=== PATIENT | male | born 1960 | race Caucasian/White ===

== ENCOUNTER 2025-10-03 16:14 | Inpatient (IN) | payer SELFPAY ==
[2025-10-03] VITALS (17 sets, daily range): BP systolic 108–148; BP diastolic 62–80; PULSE 73–89; RESP 14–19; TEMP 97–97.1; O2SAT 94
--- NOTE | 2025-10-03 16:50 | NUR ---
ADMISSION PATIENT ARRIVED FROM EXCEPTIONAL ER TO UNIT WITH A 10/10 PAIN TO RECTAL AND BACK AREA. PATIENT NOTED TO BE RESTLESS, MOANING, AND IRRITABLE SINCE ARRIVAL RELATED TO PAIN. CALLED DR. POWELL REGARDING TREATMENT. NEW ORDERS FOR STAT KUB, DILAUDID 1MG IVP Q2H, AND FOR PATIENT TO BE PLACED NPO, CARRIED OUT. NO INFORMATION IS BEING ABLE TO BE OBTAINED FROM PATIENT HE STATES TO BE IN TOO MUCH PAIN.
--- NOTE | 2025-10-03 17:10 | NUR ---
FOLLOW-UP NOTE DR. LELA XAVIER IS ON FLOOR. NEW ORDERS FOR STAT CMP, AND CMP, 500ML IV BOLUS, CARRIED OUT.
--- NOTE | 2025-10-03 17:11 | HP ---
[facility] HISTORY AND PHYSICAL Date of Service: Oct 03, 2025 Time of Service: 17:10 HISTORY OF PRESENT ILLNESS: This 64-year-old male with no significant past medical history who presented from the outside ER secondary to foreign body in his rectum. Patient initially presented to exceptional after he was noted to have a plastic bottle in his rectum. Patient underwent CT pelvis which noted that patient had a 9.8 x 7.2 cm cylindrical foreign body in the rectum. Patient was thereafter transferred to [facility] for evaluation by Surgical Service. Patient was accepted by surgery and surgery requested hospitalist service to be consulted for admission. When seen at bedside patient currently is in significant distress secondary to pain. He is not able to participate in conversation. He is alert oriented x3 and is moving upper and lower extremity without issues. He is requesting pain medications at this time. He denies any previous surgical history and denies any medical conditions. Denies taking any medications at home. History is very limited at this time due to patient's significant distress. I did call surgery and did inform Dr. Lentz significant distress due to pain. Surgery is aware. History is mostly obtained from chart review. Outside ER patient's white count was 14.8, hemoglobin was 15.4, platelet count was 247 K, sodium was 131, potassium was 4.4, chloride was 109, bicarb was 20, glucose was 151, creatinine was 1.7, CK was 317, T bili was 1.1, AST was 24, ALT was 22, alk-phos was [address] pelvis in the outside ER which showed 9.8 x 7.2 cm cylindrical foreign body in the rectum In the outside ER patient was given Rocephin, Flagyl REVIEW OF SYSTEMS CONSTITUTIONAL: Denies fevers, chills, or night sweats. No unintentional weight loss reported. NEUROLOGICAL: Denies headache, amaurosis fugax, motor weakness, sensory deficit, vertigo/spinning sensation, gait abnormalities, or tremors. ENT: No hearing loss, otalgia, otorrhea, rhinitis, rhinorrhea, hoarseness, or sore throat. CARDIOVASCULAR: Denies any exertional angina, dyspnea on exertion, orthopnea, paroxysmal nocturnal dyspnea, palpitations, life-threatening arrhythmias, claudication. PULMONARY: Denies any shortness of breath, cough, phlegm/sputum, hemoptysis, pleuritic chest pain. SLEEP: Denies morning headaches, daytime somnolence or napping. Denies difficulty falling asleep, staying asleep, waking from sleep. Denies knowledge of snoring. GASTROINTESTINAL: Positive for abdominal pain. Denied any melena, hematochezia, hematemesis GENITOURINARY: Denies frequency, urgency, nocturia, hematuria or incontinence (Storage/Irritative symptoms.) Low urinary stream, straining to void, urinary intermittency or hesitancy, splitting of the voiding stream, terminal dribbling. ENDOCRINOLOGIC: Denies polyuria, polydipsia, polyphagia or heat/cold intolerances. HEMATOLOGIC: Denies thrombophilia/previous clots, or coagulopathy/bleeding disorders. ONCOLOGIC: Denies personal history of malignancy. DERMATOLOGIC: Denies rashes or pruritus. PSYCHIATRIC: Denies any suicidal or homicidal ideation. Denies hallucinations. PAST MEDICAL HISTORY: Denied any previous medical conditions PAST SURGICAL HISTORY: Denied any previous surgical history PAST SOCIAL HISTORY: Unable to obtain FAMILY HISTORY: Unable to obtain Coded Allergies: No Known Drug Allergies (Verified Allergy, Unknown, 10/03/25) PHYSICAL EXAM GENERAL APPEARANCE: Does not significant distress secondary to pain NEUROLOGICAL: Cranial nerves II-XII grossly intact. Motor is 5/5 in bilateral upper and lower extremities proximal to distal. No sensory deficits. HEENT: Face is symmetric. Pupils are equal and reactive. Extraocular movements are intact. NECK: Supple. No JVD. No thyromegaly. No submental, submandibular, pre- /postauricular, occipital or supraclavicular lymphadenopathy. CHEST: Normal chest expansion. No Telemetry. LUNGS: Absence of any rales, rhonchi or any wheezing. CARDIOVASCULAR: Regular. S1 and S2 normal. No appreciable rubs, murmurs or gallops. ABDOMEN: Does not cooperate for abdominal exam : Deferred. No Desai. EXTREMITIES: Non-edematous and not cyanotic. No clubbing. Good capillary refill. SKIN: No skin breakdown. LABS: Outside labs reviewed Current Medications Medications (Trade) Dose Ordered Sig/Efra Route PRN Reason Start Time Stop Time Status Last Admin Dose Admin Ceftriaxone Sodium (Rocephin 2gm Inj) 2 gm Q24H IVPB 10/04/25 07:00 10/14/25 06:59 UNV Famotidine (Pepcid 20mg Vial) 20 mg BID IV 10/03/25 21:00 11/02/25 20:59 UNV Hydromorphone HCl (DiLAUDid 1MG INJ) 1 mg Q2HPRN PRN IVP SEVERE PAIN (7-10) 10/03/25 17:30 10/08/25 17:29 Metronidazole/ Sodium Chloride 100 ml @ 100 mls/hr Q8H6 IVPB 10/03/25 22:00 10/13/25 21:59 UNV Sodium Chloride 1,000 ml @ 100 mls/hr Q10H IV 10/03/25 17:30 11/02/25 17:29 UNV DIAGNOSTICS / RADIOLOGY: [ ] ASSESSMENT: Foreign body in rectum POA Leukocytosis POA Dehydration PLAN: - patient to be admitted to medical-surgical unit -reference to foreign body in rectum. I did personally call and discussed this case with surgery. Plan for OR today. Patient to be given NS and we will be started on Rocephin and Flagyl. We will obtain CBC, CMP, PTT. Patient to be given a dose of Dilaudid and we will be on Dilaudid for pain 7/10. -obtain home medications which will be reconciled once available -we will obtain further history once patient's pain has improved likely after OR. Advanced Care Planning Which of the following were discussed: Hospice care: Yes __ No _x_ Therapeutic options: Yes __ No __ Advance directives: Yes __ No __ Other discussions: Discussed with who?: patient (Patient, family or surrogates) Voluntary nature of this service was explained to the patient? Yes _x_ No __ Amount of time spent: 25 minutes LELA Daniel MD, MD Oct 03, 2025 17:11
[2025-10-03] MEDS: 0.9% NACL 500ML IV.SOLN IV STA (17:15)
--- NOTE | 2025-10-03 17:20 | NUR ---
FOLLOW-UP NOTE NEW ORDERS PER DR. POWELL TO OBTAIN CONSENT FOR EXAMINATION UNDER ANESTHESIA AND ANY INDICATED PROCEDURES. PATIENT IS TO BE SENT TO OR PER DR. POWELL.
--- NOTE | 2025-10-03 17:30 | NUR ---
LEFT TO OR PATIENT LEFT UNIT TO OR PROCEDURE. AT THIS GIVEN MOMENT, NO PATIENT HISTORY OR INFORMATION IS ABLE TO BE OBTAINED PATIENT CONTINUES TO STATE TO BE IN A LOT OF PAIN.
[2025-10-03 17:33] LABS: IMMATURE GRANULOCYTE ABSOLUTE 0.08 K/uL (0-1); NUCLEATED RED BLOOD CELLS 0.0 % (0.0-0.19); PLATELET COUNT (AUTO) 238 K/uL (130-400); RED BLOOD CELL COUNT(AUTO) 4.92 MIL/uL (4.50-6.20); RED CELL DISTRIBUTION WIDTH 11.9 % (11.0-15.5); WHITE BLOOD COUNT (AUTO) 16.7 K/uL (4.8-10.8)
[2025-10-03 17:42] LABS: INR 1.03 (0.85-1.15)
[2025-10-03] MEDS ORDERED: MIDAZOLAM HCL 1 MG/ML 2ML VIAL ONE (18:05)
[2025-10-03] MEDS: SUGAMMADEX SODIUM 200 MG/2 ML VIAL IV ONE (18:07)
[2025-10-03] MEDS ORDERED: SUCCINYLCHOLINE CHLORIDE 20 MG/ML 10 ML VIAL ONE (18:09)
[2025-10-03] MEDS ORDERED: LIDOCAINE PF 100MG/5ML (2%) SYRINGE 5ML ONE (18:09)
[2025-10-03 18:14] LABS: CREATININE 0.9 mg/dL (0.5-1.3); GLOMERULAR FILTR. RATE CALC 96.0 mL/min (>90); GLUCOSE,RANDOM 117.0 mg/dL (70-105); SODIUM SERUM 137.0 mmol/L (136-145); UREA NITROGEN, BLOOD 20.0 mg/dL (7-18)
[2025-10-03 18:18] LABS: ASPARTATE AMINOTRANSFERASE 20.0 U/L (10-37); TOTAL PROTEIN, SERUM 7.8 g/dL (6.0-8.3)
--- NOTE | 2025-10-03 18:28 | HMCIMG ---
EXAM: CR Abdomen, 2 View. CLINICAL HISTORY: FOREIGN OBJECT IN RECTUM COMPARISON: None provided. FINDINGS: There is a 10 x 7 cm foreign object within the distal rectosigmoid colon. Visualized proximal bowel loops remain normal in caliber. There is abundant colonic fecal matter noted. No pneumoperitoneum or radiographic evidence of pneumatosis intestinalis. IMPRESSION: 1. 10 x 7 cm foreign object in distal rectosigmoid colon. 2. No pneumoperitoneum or pneumatosis intestinalis. /Garita
[2025-10-03] MEDS: LIDOCAINE HCL/EPINEPHRINE 30 ML VIAL IJ ONE (19:03)
[2025-10-03] MEDS ORDERED: LIDOCAINE HCL/EPINEPHRINE 30 ML VIAL IJ ONE (19:16)
[2025-10-03] MEDS ORDERED: [UNRECOGNIZED DRUG - OTHER] TP ONE (19:33)
[2025-10-03] MEDS ORDERED: LIDOCAINE HCL TP ONE (19:33)
[2025-10-03] MEDS ORDERED: APPL TP ONE (19:33)
--- NOTE | 2025-10-03 19:51 | CONS ---
GENERAL SURGERY CONSULTATION NOTE DATE OF CONSULTATION: Oct 03, 2025 TIME OF CONSULTATION: 19:51 CONSULTING SERVICE: Sherry Rock MD REQUESTING PHYSICAIN: [ ] REASON FOR CONSULTATION: [ ] HISTORY OF PRESENT ILLNESS: [ ] PAST MEDICAL HISTORY: [ ] PAST SURGICAL HISTORY: [ ] FAMILY HISTORY: [ ] SOCIAL HISTORY: [ ] Current Medications Medications (Trade) Dose Ordered Sig/Efra Route Start Time Stop Time Status Last Admin Dose Admin Ceftriaxone Sodium (Rocephin 2gm Inj) 2 gm Q24H IVPB 10/04/25 07:00 10/14/25 06:59 Famotidine (Pepcid 20mg Vial) 20 mg DAILY IV 10/03/25 21:00 11/02/25 20:59 Metronidazole/ Sodium Chloride 100 ml @ 100 mls/hr Q8H6 IVPB 10/03/25 22:00 10/13/25 21:59 Sodium Chloride 1,000 ml @ 100 mls/hr Q10H IV 10/03/25 17:30 11/02/25 17:29 Sodium Chloride (NS 500ml Iv.soln) 500 ml BOLUS STAT IV 10/03/25 17:15 10/03/25 17:39 DC Allergies: Coded Allergies: No Known Drug Allergies (Verified Allergy, Unknown, 10/03/25) REVIEW OF SYSTEMS: MICA BUILDER: [Denies headaches or blurring of vision.] RESP: [No cough, chest pain or SOB.] CVS: [No palpitaions.] GI: [abdominal pain with nausea and vomiting, no diarrhea or constipation.] MICHELLE: [No dysuria or hematuria.] Musculoskeletal: [No swelling or joint pain.] BACK: [No pain or swelling.] All other systems are reviewed and essentially negative pertinent positives in HPI. PHYSICAL EXAMINATION: GENERAL: [Patient is lying comfortably in bed, not in any obvious distress.] HEAD: [Normal with no signs of head trauma.] EYES: [Not pale not jaundiced afebrile to touch.] ENT: [ Normal.] NECK: [Supple,no tenderness,no lymphadenopathy,no masses,no thyromegaly ,no bruits, no JVD.] LUNGS: [Clear breath sounds bilaterally. No wheezes, rales, or rhonchi.] HEART: [Regular rate and rhythm. Normal S1 and S2, without murmurs, rub or gallop.] VASC: [No edema. Peripheral pulses normal and equal in all extremities.] ABD: [Bowel sounds present,soft, RUQ tender, no masses, no organomegaly.] : [Normal, no suprapubic tenderness.] LYMPH: [No lymphadenopathy noted.] EXT: [ Warm soft, non tender.] SKIN: [ No rashes or lesions.] NEURO: [ Awake Alert and oriented x3.] LABORATORY: [ ] Hematology Labs: Test 10/03/25 17:23 Range/Units White Blood Count 16.7 H 4.8-10.8 K/uL Red Blood Count 4.92 4.50-6.20 MIL/uL Hemoglobin 15.3 14.0-18.0 g/dL Hematocrit 44.7 42-54 % Mean Corpuscular Volume 90.9 79-99 fL Mean Corpuscular Hemoglobin 31.1 27.0-33.0 pg Mean Corpuscular Hemoglobin Concent 34.2 32.0-36.0 g/dL Red Cell Distribution Width 11.9 11.0-15.5 % Platelet Count 238 130-400 K/uL Mean Platelet Volume 10.0 7.5-10.5 fL Immature Granulocyte % (Auto) 0.5 0-1 % Neutrophils (%) (Auto) 85.5 H 40.0-77.0 % Lymphocytes (%) (Auto) 6.7 L 21.0-51.0 % Monocytes (%) (Auto) 7.1 3.0-13.0 % Eosinophils (%) (Auto) 0.1 0.0-8.0 % Basophils (%) (Auto) 0.1 0.0-5.0 % Neutrophils # (Auto) 14.3 H 1.8-7.7 K/uL Lymphocytes # (Auto) 1.1 1.0-4.8 K/uL Monocytes # (Auto) 1.2 H 0.1-1.0 K/uL Eosinophils # (Auto) 0.02 0.00-0.70 K/uL Basophils # (Auto) 0.01 0.00-0.20 K/uL Absolute Immature Granulocyte (auto 0.08 0-1 K/uL Nucleated Red Blood Cells 0.0 0.0-0.19 % White Cell Morphology Comment See comments Chemistry Labs: Test 10/03/25 17:23 Range/Units Sodium Level 137 136-145 mmol/L Potassium Level 3.6 3.5-5.1 mmol/L Chloride Level 101 101-111 mmol/L Carbon Dioxide Level 21 21-32 mmol/L Blood Urea Nitrogen 20 H 7-18 mg/dL Creatinine 0.9 0.5-1.3 mg/dL Glomerular Filtration Rate Calc 96 >90 mL/min Random Glucose 117 H 70-105 mg/dL Total Calcium 8.8 8.5-10.1 mg/dL Total Bilirubin 0.8 0.2-1.0 mg/dL Aspartate Amino Transf (AST/SGOT) 20 10-37 U/L Alanine Aminotransferase (ALT/SGPT) 15 12-78 U/L Alkaline Phosphatase 71 50-136 U/L Total Protein 7.8 6.0-8.3 g/dL Albumin 3.5 3.5-5.0 g/dL Coagulation Labs: Test 10/03/25 17:23 Range/Units Prothrombin Time 10.9 9.6-11.6 SEC Prothromb Time International Ratio 1.03 0.85-1.15 Activated Partial Thromboplast Time 24.6 L 26.3-35.5 SEC DIAGNOSTICS / RADIOLOGY: [Copy/Paste Echos/Imaging Report here] ASSESSMENT: [] Foreign body in the rectum PLAN: [] NPO/IVF/IV ANTIOBIOTICS Schedule for OR We talked about various treatment options including but not limited to surgery. We talked about risks and benefits of surgery, patient verbalized understanding has agreed to proceed [ ]. We will schedule [ ]. SHERRY ROCK MD Oct 03, 2025 19:51
--- NOTE | 2025-10-03 20:40 | NUR ---
Post op Patient arrived from surgery, alert x3. Drowsy. Follows commands. Denies pain or shortness of breath. Minimal bleeding from rectum. Reinforced and placed a pad. Vitals stable. Oxygen saturation at 89%, Applied 2 liters nasal cannula. Fall precautions in place. Call light within reach. bed alarm on.
[2025-10-03] MEDS: FAMOTIDINE 20MG VIAL IV SCH (21:11)
[2025-10-03] MEDS: 0.9%NACL 1000ML 1,000 ML IV SCH (21:12)
[2025-10-04] VITALS (10 sets, daily range): BP systolic 88–137; BP diastolic 58–88; PULSE 70–90; RESP 16–19; TEMP 98.1–100.1; O2SAT 97
--- NOTE | 2025-10-04 03:49 | NUR ---
BLADDER SCAN Patient due to void. States he does not feel urge or pain/pressure to urinate. Bladder scan with 469 ml urine. Notified Hebert Song NP.
[2025-10-04 03:58] LABS: IMMATURE GRANULOCYTE ABSOLUTE 0.08 K/uL (0-1); NUCLEATED RED BLOOD CELLS 0.0 % (0.0-0.19); PLATELET COUNT (AUTO) 221 K/uL (130-400); RED BLOOD CELL COUNT(AUTO) 4.56 MIL/uL (4.50-6.20); RED CELL DISTRIBUTION WIDTH 12.2 % (11.0-15.5); WHITE BLOOD COUNT (AUTO) 16.8 K/uL (4.8-10.8)
[2025-10-04 04:13] LABS: CREATININE 0.9 mg/dL (0.5-1.3); GLOMERULAR FILTR. RATE CALC 96.0 mL/min (>90); GLUCOSE,RANDOM 103.0 mg/dL (70-105); SODIUM SERUM 139.0 mmol/L (136-145); UREA NITROGEN, BLOOD 16.0 mg/dL (7-18)
--- NOTE | 2025-10-04 11:34 | NUR ---
DCP:HOME Pt currently lives alone in his home. Pt denies any DME, home health, or provider services. Pt states that he is able to complete ADLs independently. PCP is [facility] and uses [employer] [facility] for any RX needs. At DC pt will want to go home and family can assist with transportation.
--- NOTE | 2025-10-04 12:18 | PN ---
[facility] PROGRESS NOTE Date of Service: Oct 04, 2025 Time of Service: 12:14 Dr. Estrada SUBJECTIVE: [ 10/03/25 This 64-year-old male with no significant past medical history who presented from the outside ER secondary to foreign body in his rectum. Patient initially presented to exceptional after he was noted to have a plastic bottle in his rectum. Patient underwent CT pelvis which noted that patient had a 9.8 x 7.2 cm cylindrical foreign body in the rectum. Patient was thereafter transferred to [facility] hospital for evaluation by Surgical Service. Patient was accepted by surgery and surgery requested hospitalist service to be consulted for admission. When seen at bedside patient currently is in significant distress secondary to pain. He is not able to participate in conversation. He is alert oriented x3 and is moving upper and lower extremity without issues. He is requesting pain medications at this time. He denies any previous surgical history and denies any medical conditions. Denies taking any medications at home. History is very limited at this time due to patient's significant distress. I did call surgery and did inform Dr. Lentz significant distress due to pain. Surgery is aware. History is mostly obtained from chart review. 10/04/25 patient was seen by nurse practitioner and physician during rounding in room 407. Patient was evaluated by the surgeon and took patient to OR to remove foreign body object from the rectum. WBC today is 16.8. Patient remains on Rocephin and Flagyl. Continue normal saline at 100 mL/hour. We will continue to monitor patient in the meantime. A.m. labs. Anticipated discharge within 24 hours once cleared by the surgeon.] REVIEW OF SYSTEMS CONSTITUTIONAL: Denies fevers, chills, or night sweats. No unintentional weight loss reported. NEUROLOGICAL: Denies headache, amaurosis fugax, motor weakness, sensory deficit, vertigo/spinning sensation, gait abnormalities, or tremors. ENT: No hearing loss, otalgia, otorrhea, rhinitis, rhinorrhea, hoarseness, or sore throat. CARDIOVASCULAR: Denies any exertional angina, dyspnea on exertion, orthopnea, paroxysmal nocturnal dyspnea, palpitations, life-threatening arrhythmias, claudication. PULMONARY: Denies any shortness of breath, cough, phlegm/sputum, hemoptysis, pleuritic chest pain. SLEEP: Denies morning headaches, daytime somnolence or napping. Denies di fficulty falling asleep, staying asleep, waking from sleep. Denies knowledge of snoring. GASTROINTESTINAL: Denies any abdominal pain. Denied any melena, hematochezia, hematemesis GENITOURINARY: Denies frequency, urgency, nocturia, hematuria or incontinence (Storage/Irritative symptoms.) Low urinary stream, straining to void, urinary intermittency or hesitancy, splitting of the voiding stream, terminal dribbling. ENDOCRINOLOGIC: Denies polyuria, polydipsia, polyphagia or heat/cold intolerances. HEMATOLOGIC: Denies thrombophilia/previous clots, or coagulopathy/bleeding disorders. ONCOLOGIC: Denies personal history of malignancy. DERMATOLOGIC: Denies rashes or pruritus. PSYCHIATRIC: Denies any suicidal or homicidal ideation. Denies hallucinations. PHYSICAL EXAM GENERAL APPEARANCE: Alert and oriented x4 on room air NEUROLOGICAL: Cranial nerves II-XII grossly intact. Motor is 5/5 in bilateral upper and lower extremities proximal to distal. No sensory deficits. HEENT: Face is symmetric. Pupils are equal and reactive. Extraocular movements are intact. NECK: Supple. No JVD. No thyromegaly. No submental, submandibular, pre- /postauricular, occipital or supraclavicular lymphadenopathy. CHEST: Normal chest expansion. No Telemetry. LUNGS: Absence of any rales, rhonchi or any wheezing. CARDIOVASCULAR: Regular. S1 and S2 normal. No appreciable rubs, murmurs or gallops. ABDOMEN: Does not cooperate for abdominal exam : Deferred. No Desai. EXTREMITIES: Non-edematous and not cyanotic. No clubbing. Good capillary refill. SKIN: No skin breakdown. Vital Signs (last 8hr) Date Time Temp Pulse Resp B/P (MAP) Pulse Ox O2 Delivery O2 Flow Rate FiO2 10/04/25 07:49 98.1 85 18 123/72 95 Nasal Cannula 2.0 LABS: Laboratory: Test 10/04/25 03:37 10/03/25 17:23 Range/Units White Blood Count 16.8 H 4.8-10.8 K/uL Red Blood Count 4.56 4.50-6.20 MIL/uL Hemoglobin 14.2 14.0-18.0 g/dL Hematocrit 42.7 42-54 % Mean Corpuscular Volume 93.6 79-99 fL Mean Corpuscular Hemoglobin 31.1 27.0-33.0 pg Mean Corpuscular Hemoglobin Concent 33.3 32.0-36.0 g/dL Red Cell Distribution Width 12.2 11.0-15.5 % Platelet Count 221 130-400 K/uL Mean Platelet Volume 9.9 7.5-10.5 fL Immature Granulocyte % (Auto) 0.5 0-1 % Neutrophils (%) (Auto) 85.8 H 40.0-77.0 % Lymphocytes (%) (Auto) 6.3 L 21.0-51.0 % Monocytes (%) (Auto) 7.3 3.0-13.0 % Eosinophils (%) (Auto) 0.0 0.0-8.0 % Basophils (%) (Auto) 0.1 0.0-5.0 % Neutrophils # (Auto) 14.4 H 1.8-7.7 K/uL Lymphocytes # (Auto) 1.1 1.0-4.8 K/uL Monocytes # (Auto) 1.2 H 0.1-1.0 K/uL Eosinophils # (Auto) 0.00 0.00-0.70 K/uL Basophils # (Auto) 0.01 0.00-0.20 K/uL Absolute Immature Granulocyte (auto 0.08 0-1 K/uL Nucleated Red Blood Cells 0.0 0.0-0.19 % Sodium Level 139 136-145 mmol/L Potassium Level 4.0 3.5-5.1 mmol/L Chloride Level 105 101-111 mmol/L Carbon Dioxide Level 23 21-32 mmol/L Blood Urea Nitrogen 16 7-18 mg/dL Creatinine 0.9 0.5-1.3 mg/dL Glomerular Filtration Rate Calc 96 >90 mL/min Random Glucose 103 70-105 mg/dL Total Calcium 7.9 L 8.5-10.1 mg/dL White Cell Morphology Comment See comments Prothrombin Time 10.9 9.6-11.6 SEC Prothromb Time International Ratio 1.03 0.85-1.15 Activated Partial Thromboplast Time 24.6 L 26.3-35.5 SEC Total Bilirubin 0.8 0.2-1.0 mg/dL Aspartate Amino Transf (AST/SGOT) 20 10-37 U/L Alanine Aminotransferase (ALT/SGPT) 15 12-78 U/L Alkaline Phosphatase 71 50-136 U/L Total Protein 7.8 6.0-8.3 g/dL Albumin 3.5 3.5-5.0 g/dL Current Medications Medications (Trade) Dose Ordered Sig/Efra Route PRN Reason Start Time Stop Time Status Last Admin Dose Admin Ceftriaxone Sodium (Rocephin 2gm Inj) 2 gm Q24H IVPB 10/04/25 07:00 10/14/25 06:59 10/04/25 10:09 2 GM Famotidine (Pepcid 20mg Vial) 20 mg DAILY IV 10/03/25 21:00 11/02/25 20:59 10/04/25 10:09 20 MG Hydromorphone HCl (DiLAUDid 0.5MG INJ) 0.75 mg Q6H PRN IVP SEVERE PAIN (7-10) 10/03/25 21:00 10/08/25 20:59 Hydromorphone HCl (DiLAUDid 1MG INJ) 1 mg Q2HPRN PRN IVP SEVERE PAIN (7-10) 10/03/25 17:30 10/04/25 04:04 DC 10/03/25 17:11 1 MG Hydromorphone HCl (DiLAUDid 1MG INJ) 1 mg Q3H PRN IVP SEVERE PAIN (7-10) 10/04/25 04:00 10/08/25 17:29 Ketorolac Tromethamine (toRADol) 30 mg Q6H PRN IM SEVERE PAIN (7-10) 10/04/25 04:00 10/09/25 03:59 Metronidazole/ Sodium Chloride 100 ml @ 100 mls/hr Q8H6 IVPB 10/03/25 22:00 10/13/25 21:59 10/04/25 05:14 100 MLS/HR Ondansetron HCl (zoFRAN 4MG INJ) 4 mg Q6H PRN IVP NAUSEA/VOMITING 10/04/25 04:00 11/03/25 03:59 Oxycodone/ Acetaminophen (perCOCET) 1 tab Q4H PRN PO MODERATE PAIN (4-6) 10/04/25 04:00 10/11/25 03:59 Sodium Chloride 1,000 ml @ 100 mls/hr Q10H IV 10/03/25 17:30 11/02/25 17:29 10/03/25 21:12 100 MLS/HR Sodium Chloride (NS 500ml Iv.soln) 500 ml BOLUS STAT IV 10/03/25 17:15 10/03/25 17:39 DC 10/03/25 17:15 500 ML DIAGNOSTICS / RADIOLOGY: [ ] ASSESSMENT: Foreign body in rectum POA Leukocytosis POA Dehydration PLAN: - Patient was evaluated by the surgeon and took patient to OR to remove foreign body object from the rectum. WBC today is 16.8. Patient remains on Rocephin and Flagyl. Continue normal saline at 100 mL/hour. We will continue to monitor patient in the meantime. A.m. labs. Anticipated discharge within 24 hours once cleared by the surgeon. -reference to foreign body in rectum. I did personally call and discussed this case with surgery. Plan for OR today. Patient to be given NS and we will be started on Rocephin and Flagyl. We will obtain CBC, CMP, PTT. Patient to be given a dose of Dilaudid and we will be on Dilaudid for pain 05/05. -obtain home medications which will be reconciled once available ATTESTATION BY PHYSICIAN I have seen and examined the patient. I reviewed the documentation, medical decision making, and treatment plan as noted by the mid-level provider above. I agree with the findings and plan of care. WANG ESTRADA MD, [facility] Oct 04, 2025 12:18
--- NOTE | 2025-10-04 18:55 | PN ---
GENERAL SURGERY PROGRESS NOTE DATE OF SERVICE: Oct 04, 2025 TIME OF SERVICE: 18:55 PROBLEM LISTS: [ ] INTERVAL HISTORY: [ ] PHYSICAL EXAMINATION: GENERAL: [Patient is lying comfortably in bed, not in any obvious distress.] HEAD: [Normal with no signs of head trauma.] EYES: [Not pale not jaundiced afebrile to touch.] ENT: [ Normal.] NECK: [Supple,no tenderness,no lymphadenopathy,no masses,no thyromegaly ,no bruits, no JVD.] LUNGS: [Clear breath sounds bilaterally. No wheezes, rales, or rhonchi.] HEART: [Regular rate and rhythm. Normal S1 and S2, without murmurs, rub or gallop.] VASC: [No edema. Peripheral pulses normal and equal in all extremities.] ABD: [Bowel sounds present,soft, RUQ tender, no masses, no organomegaly.] : [Normal, no suprapubic tenderness.] LYMPH: [No lymphadenopathy noted.] EXT: [ Warm soft, non tender.] SKIN: [ No rashes or lesions.] NEURO: [ Awake Alert and oriented x3.] LABORATORY: [ ] Hematology Labs: Test 10/04/25 03:37 10/03/25 17:23 Range/Units White Blood Count 16.8 H 4.8-10.8 K/uL Red Blood Count 4.56 4.50-6.20 MIL/uL Hemoglobin 14.2 14.0-18.0 g/dL Hematocrit 42.7 42-54 % Mean Corpuscular Volume 93.6 79-99 fL Mean Corpuscular Hemoglobin 31.1 27.0-33.0 pg Mean Corpuscular Hemoglobin Concent 33.3 32.0-36.0 g/dL Red Cell Distribution Width 12.2 11.0-15.5 % Platelet Count 221 130-400 K/uL Mean Platelet Volume 9.9 7.5-10.5 fL Immature Granulocyte % (Auto) 0.5 0-1 % Neutrophils (%) (Auto) 85.8 H 40.0-77.0 % Lymphocytes (%) (Auto) 6.3 L 21.0-51.0 % Monocytes (%) (Auto) 7.3 3.0-13.0 % Eosinophils (%) (Auto) 0.0 0.0-8.0 % Basophils (%) (Auto) 0.1 0.0-5.0 % Neutrophils # (Auto) 14.4 H 1.8-7.7 K/uL Lymphocytes # (Auto) 1.1 1.0-4.8 K/uL Monocytes # (Auto) 1.2 H 0.1-1.0 K/uL Eosinophils # (Auto) 0.00 0.00-0.70 K/uL Basophils # (Auto) 0.01 0.00-0.20 K/uL Absolute Immature Granulocyte (auto 0.08 0-1 K/uL Nucleated Red Blood Cells 0.0 0.0-0.19 % White Cell Morphology Comment See comments Chemistry Labs: Test 10/04/25 03:37 10/03/25 17:23 Range/Units Sodium Level 139 136-145 mmol/L Potassium Level 4.0 3.5-5.1 mmol/L Chloride Level 105 101-111 mmol/L Carbon Dioxide Level 23 21-32 mmol/L Blood Urea Nitrogen 16 7-18 mg/dL Creatinine 0.9 0.5-1.3 mg/dL Glomerular Filtration Rate Calc 96 >90 mL/min Random Glucose 103 70-105 mg/dL Total Calcium 7.9 L 8.5-10.1 mg/dL Total Bilirubin 0.8 0.2-1.0 mg/dL Aspartate Amino Transf (AST/SGOT) 20 10-37 U/L Alanine Aminotransferase (ALT/SGPT) 15 12-78 U/L Alkaline Phosphatase 71 50-136 U/L Total Protein 7.8 6.0-8.3 g/dL Albumin 3.5 3.5-5.0 g/dL Coagulation Labs: Test 10/03/25 17:23 Range/Units Prothrombin Time 10.9 9.6-11.6 SEC Prothromb Time International Ratio 1.03 0.85-1.15 Activated Partial Thromboplast Time 24.6 L 26.3-35.5 SEC DIAGNOSTICS / RADIOLOGY: [Copy/Paste Echos/Imaging Report here] ASSESSMENT: [] Foreign body in the rectum PLAN: [] NPO/IVF/IV ANTIOBIOTICS Schedule for OR We talked about various treatment options including but not limited to surgery. We talked about risks and benefits of surgery, patient verbalized understanding has agreed to proceed [ ]. We will schedule [ ]. SHERRY DUNCAN MD Oct 04, 2025 18:55
--- NOTE | 2025-10-04 19:39 | NUR ---
NOTIFIED DR. POWELL OF HIGH TEMPERATURE OF 100.1 TAKEN AT 11:30. NEW ORDERS FOR ACETAMINOPHEN 650MG PO Q4H.
--- NOTE | 2025-10-04 22:00 | NUR ---
DRESSING Abdominal pad and new mesh underwear placed on patient. New peripad applied under patient. No bleeding noted to rectum. Denies pain. Denies nausea. Fall precautions in place. Call light within reach.
[2025-10-05] VITALS (7 sets, daily range): BP systolic 139–155; BP diastolic 75–88; PULSE 79–89; RESP 18–20; TEMP 98.1–98.9; O2SAT 92
--- NOTE | 2025-10-05 02:51 | OP ---
DATE OF PROCEDURE: 10/03/2025 PREOPERATIVE DIAGNOSIS: Foreign body in the rectum. POSTOPERATIVE DIAGNOSIS: Foreign body in the rectum. PROCEDURE PERFORMED: 1. Examination under anesthesia. 2. Removal of rectal foreign body. 3. Repair of an anal tear. SURGEON: Tro Rock M.D. ANESTHESIA: General. ESTIMATED BLOOD LOSS: Minimal. FINDINGS: Huge plastic cylindrical bottle. SPECIMEN REMOVED: Cylindrical bottle foreign body. COMPLICATIONS: None. DESCRIPTION OF PROCEDURE: The patient was brought into the operating room. After appropriate identification, the patient was placed on the operating table in the supine position. The patient was then endotracheally intubated and the patient was then placed in lithotomy position. Attention was then focused in the area of the perineum. The skin was prepped and draped in the usual sterile fashion. I proceeded by inspecting the anorectal region. Initially, the foreign body was not visible, but once I put the speculum, I was able to see it is a huge plastic cylindrical bottle. So I proceeded to carefully manipulate this until it was able to come out. It took a lot of effort to get it out. Once it was removed, there was multiple anorectal tears that I proceeded to repair using chromic catgut. Once this was done, I then copiously irrigated the wound. Hemostasis was noted to be adequate. I then proceeded to put sterile dressing and this concluded the procedure. The instrument and sponge count was found correct x 2. The patient was then woken up, extubated, and taken to the recovery room in stable condition. The patient tolerated the procedure well. TID: [id number] RECEIPT: [id number]
[2025-10-05 03:42] LABS: IMMATURE GRANULOCYTE ABSOLUTE 0.04 K/uL (0-1); NUCLEATED RED BLOOD CELLS 0.0 % (0.0-0.19); PLATELET COUNT (AUTO) 170 K/uL (130-400); RED BLOOD CELL COUNT(AUTO) 4.16 MIL/uL (4.50-6.20); RED CELL DISTRIBUTION WIDTH 12.4 % (11.0-15.5); WHITE BLOOD COUNT (AUTO) 10.2 K/uL (4.8-10.8)
[2025-10-05 03:59] LABS: ASPARTATE AMINOTRANSFERASE 21.0 U/L (10-37); CREATININE 0.7 mg/dL (0.5-1.3); GLOMERULAR FILTR. RATE CALC 104.0 mL/min (>90); GLUCOSE,RANDOM 90.0 mg/dL (70-105); SODIUM SERUM 139.0 mmol/L (136-145); TOTAL PROTEIN, SERUM 6.2 g/dL (6.0-8.3); UREA NITROGEN, BLOOD 12.0 mg/dL (7-18)
[2025-10-05] MEDS: PoTASSium chloRIDE 20MEQ ER 20 MEQ ERTAB PO ONE (09:30)
--- NOTE | 2025-10-05 12:58 | PN ---
[facility] PROGRESS NOTE Date of Service: Oct 05, 2025 Time of Service: 12:[address] Estrada SUBJECTIVE: [ 10/03/25 This 64-year-old male with no significant past medical history who presented from the outside ER secondary to foreign body in his rectum. Patient initially presented to exceptional after he was noted to have a plastic bottle in his rectum. Patient underwent CT pelvis which noted that patient had a 9.8 x 7.2 cm cylindrical foreign body in the rectum. [place] [facility] [place] Service. Patient was accepted by surgery and surgery requested hospitalist service to be consulted for admission. When seen at bedside patient currently is in significant distress secondary to pain. He is not able to participate in conversation. He is alert oriented x3 and is moving upper and lower extremity without issues. He is requesting pain medications at this time. He denies any previous surgical history and denies any medical conditions. Denies taking any medications at home. History is very limited at this time due to patient's significant distress. I did call surgery and did inform Dr. Lentz significant distress due to pain. Surgery is aware. History is mostly obtained from chart review. 10/04/25 patient was seen by nurse practitioner and physician during rounding in room 407. Patient was evaluated by the surgeon and took patient to OR to remove foreign body object from the rectum. WBC today is 16.8. Patient remains on Rocephin and Flagyl. Continue normal saline at 100 mL/hour. We will continue to monitor patient in the meantime. A.m. labs. Anticipated discharge within 24 hours once cleared by the surgeon. 10/05/25 patient was seen by nurse practitioner and physician during rounding. Patient is s/p removal of the rectal full range body and repair of an anal tear with . As per conversation with surgeon and BURR FILER patient to remain on full liquid diet as of now and in future patient may need diverting colostomy. At this moment we are going to monitor patient. A.m. labs] REVIEW OF SYSTEMS CONSTITUTIONAL: Denies fevers, chills, or night sweats. No unintentional weight loss reported. NEUROLOGICAL: Denies headache, amaurosis fugax, motor weakness, sensory deficit, vertigo/spinning sensation, gait abnormalities, or tremors. ENT: No hearing loss, otalgia, otorrhea, rhinitis, rhinorrhea, hoarseness, or sore throat. CARDIOVASCULAR: Denies any exertional angina, dyspnea on exertion, orthopnea, paroxysmal nocturnal dyspnea, palpitations, life-threatening arrhythmias, claudication. PULMONARY: Denies any shortness of breath, cough, phlegm/sputum, hemoptysis, pleuritic chest pain. SLEEP: Denies morning headaches, daytime somnolence or napping. Denies difficulty falling asleep, staying asleep, waking from sleep. Denies knowledge of snoring. GASTROINTESTINAL: Denies any abdominal pain. Denied any melena, hematochezia, hematemesis GENITOURINARY: Denies frequency, urgency, nocturia, hematuria or incontinence (Storage/Irritative symptoms.) Low urinary stream, straining to void, urinary intermittency or hesitancy, splitting of the voiding stream, terminal dribbling. ENDOCRINOLOGIC: Denies polyuria, polydipsia, polyphagia or heat/cold intolerances. HEMATOLOGIC: Denies thrombophilia/previous clots, or coagulopathy/bleeding disorders. ONCOLOGIC: Denies personal history of malignancy. DERMATOLOGIC: Denies rashes or pruritus. PSYCHIATRIC: Denies any suicidal or homicidal ideation. Denies hallucinations. PHYSICAL EXAM GENERAL APPEARANCE: Alert and oriented x4 on room air NEUROLOGICAL: Cranial nerves II-XII grossly intact. Motor is 5/5 in bilateral upper and lower extremities proximal to distal. No sensory deficits. HEENT: Face is symmetric. Pupils are equal and reactive. Extraocular movements are intact. NECK: Supple. No JVD. No thyromegaly. No submental, submandibular, pre- /postauricular, occipital or supraclavicular lymphadenopathy. CHEST: Normal chest expansion. No Telemetry. LUNGS: Absence of any rales, rhonchi or any wheezing. CARDIOVASCULAR: Regular. S1 and S2 normal. No appreciable rubs, murmurs or gallops. ABDOMEN: Does not cooperate for abdominal exam : Deferred. No Desai. EXTREMITIES: Non-edematous and not cyanotic. No clubbing. Good capillary refill. SKIN: No skin breakdown. Vital Signs (last 8hr) Date Time Temp Pulse Resp B/P (MAP) Pulse Ox O2 Delivery O2 Flow Rate FiO2 10/05/25 11:41 98.4 79 19 142/81 94 Room Air 21 10/05/25 07:37 98.2 79 19 139/88 92 Room Air 21 LABS: Laboratory: Test 10/05/25 03:27 10/03/25 17:23 Range/Units White Blood Count 10.2 # 4.8-10.8 K/uL Red Blood Count 4.16 L 4.50-6.20 MIL/uL Hemoglobin 13.0 L 14.0-18.0 g/dL Hematocrit 39.4 L 42-54 % Mean Corpuscular Volume 94.7 79-99 fL Mean Corpuscular Hemoglobin 31.3 27.0-33.0 pg Mean Corpuscular Hemoglobin Concent 33.0 32.0-36.0 g/dL Red Cell Distribution Width 12.4 11.0-15.5 % Platelet Count 170 130-400 K/uL Mean Platelet Volume 9.7 7.5-10.5 fL Immature Granulocyte % (Auto) 0.4 0-1 % Neutrophils (%) (Auto) 76.6 40.0-77.0 % Lymphocytes (%) (Auto) 13.0 L 21.0-51.0 % Monocytes (%) (Auto) 8.9 3.0-13.0 % Eosinophils (%) (Auto) 1.0 0.0-8.0 % Basophils (%) (Auto) 0.1 0.0-5.0 % Neutrophils # (Auto) 7.8 H 1.8-7.7 K/uL Lymphocytes # (Auto) 1.3 1.0-4.8 K/uL Monocytes # (Auto) 0.9 0.1-1.0 K/uL Eosinophils # (Auto) 0.10 0.00-0.70 K/uL Basophils # (Auto) 0.01 0.00-0.20 K/uL Absolute Immature Granulocyte (auto 0.04 0-1 K/uL Nucleated Red Blood Cells 0.0 0.0-0.19 % Sodium Level 139 136-145 mmol/L Potassium Level 3.5 3.5-5.1 mmol/L Chloride Level 105 101-111 mmol/L Carbon Dioxide Level 23 21-32 mmol/L Blood Urea Nitrogen 12 7-18 mg/dL Creatinine 0.7 0.5-1.3 mg/dL Glomerular Filtration Rate Calc 104 >90 mL/min Random Glucose 90 70-105 mg/dL Total Calcium 7.8 L 8.5-10.1 mg/dL Magnesium Level 2.00 1.80-2.40 mg/dL Total Bilirubin 0.4 0.2-1.0 mg/dL Aspartate Amino Transf (AST/SGOT) 21 10-37 U/L Alanine Aminotransferase (ALT/SGPT) 13 12-78 U/L Alkaline Phosphatase 50 50-136 U/L Total Protein 6.2 6.0-8.3 g/dL Albumin 2.5 L 3.5-5.0 g/dL White Cell Morphology Comment See comments Prothrombin Time 10.9 9.6-11.6 SEC Prothromb Time International Ratio 1.03 0.85-1.15 Activated Partial Thromboplast Time 24.6 L 26.3-35.5 SEC Current Medications Medications (Trade) Dose Ordered Sig/Efra Route PRN Reason Start Time Stop Time Status Last Admin Dose Admin Acetaminophen (TYLenol 325MG TAB) 650 mg Q4H PRN PO TEMPERATURE GREATER THAN 101.5 10/04/25 21:30 11/03/25 21:29 Ceftriaxone Sodium (Rocephin 2gm Inj) 2 gm Q24H IVPB 10/04/25 07:00 10/14/25 06:59 10/05/25 09:29 2 GM Famotidine (Pepcid 20mg Vial) 20 mg DAILY IV 10/03/25 21:00 11/02/25 20:59 10/05/25 09:29 20 MG Hydromorphone HCl (DiLAUDid 0.5MG INJ) 0.75 mg Q6H PRN IVP SEVERE PAIN (7-10) 10/03/25 21:00 10/04/25 16:18 DC Hydromorphone HCl (DiLAUDid 1MG INJ) 1 mg Q2HPRN PRN IVP SEVERE PAIN (7-10) 10/03/25 17:30 10/04/25 04:04 DC 10/03/25 17:11 1 MG Hydromorphone HCl (DiLAUDid 1MG INJ) 1 mg Q3H PRN IVP SEVERE PAIN (7-10) 10/04/25 04:00 10/08/25 17:29 Ketorolac Tromethamine (toRADol) 30 mg Q6H PRN IM SEVERE PAIN (7-10) 10/04/25 04:00 10/04/25 16:18 DC Metronidazole/ Sodium Chloride 100 ml @ 100 mls/hr Q8H6 IVPB 10/03/25 22:00 10/13/25 21:59 10/05/25 06:07 100 MLS/HR Ondansetron HCl (zoFRAN 4MG INJ) 4 mg Q6H PRN IVP NAUSEA/VOMITING 10/04/25 04:00 11/03/25 03:59 Oxycodone/ Acetaminophen (perCOCET) 1 tab Q4H PRN PO MODERATE PAIN (4-6) 10/04/25 04:00 10/11/25 03:59 Sodium Chloride 1,000 ml @ 100 mls/hr Q10H IV 10/03/25 17:30 11/02/25 17:29 10/04/25 23:21 100 MLS/HR Sodium Chloride (NS 500ml Iv.soln) 500 ml BOLUS STAT IV 10/03/25 17:15 10/03/25 17:39 DC 10/03/25 17:15 500 ML DIAGNOSTICS / RADIOLOGY: [ ] ASSESSMENT: Foreign body in rectum POA s/p removal of the rectal full range body and repair of an anal tear with . Leukocytosis POA Dehydration PLAN: Patient is s/p removal of the rectal full range body and repair of an anal tear with . As per conversation with surgeon and BURR FILER patient to remain on full liquid diet as of now and in future patient may need diverting colostomy. At this moment we are going to monitor patient. A.m. labs] Patient remains on Rocephin and Flagyl. Continue normal saline at 100 mL/hour. -reference to foreign body in rectum. I did personally call and discussed this case with surgery. Plan for OR today. Patient to be given NS and we will be started on Rocephin and Flagyl. We will obtain CBC, CMP, PTT. Patient to be given a dose of Dilaudid and we will be on Dilaudid for pain 05/05. -obtain home medications which will be reconciled once available ATTESTATION BY PHYSICIAN I have seen and examined the patient. I reviewed the documentation, medical decision making, and treatment plan as noted by the mid-level provider above. I agree with the findings and plan of care. WANG ESTRADA MD, KATARZYNA B [facility] Oct 05, 2025 12:58
[2025-10-06 04:24] VITALS: BP 162/91; PULSE 86; RESP 19; TEMP 98.5
[2025-10-06 04:35] LABS: IMMATURE GRANULOCYTE ABSOLUTE 0.04 K/uL (0-1); NUCLEATED RED BLOOD CELLS 0.0 % (0.0-0.19); PLATELET COUNT (AUTO) 209 K/uL (130-400); RED BLOOD CELL COUNT(AUTO) 4.55 MIL/uL (4.50-6.20); RED CELL DISTRIBUTION WIDTH 11.9 % (11.0-15.5); WHITE BLOOD COUNT (AUTO) 9.5 K/uL (4.8-10.8)
[2025-10-06 05:16] LABS: ASPARTATE AMINOTRANSFERASE 20.0 U/L (10-37); CREATININE 0.8 mg/dL (0.5-1.3); GLOMERULAR FILTR. RATE CALC 99.0 mL/min (>90); GLUCOSE,RANDOM 96.0 mg/dL (70-105); SODIUM SERUM 138.0 mmol/L (136-145); TOTAL PROTEIN, SERUM 6.6 g/dL (6.0-8.3); UREA NITROGEN, BLOOD 7.0 mg/dL (7-18)
--- NOTE | 2025-10-06 06:00 | NUR ---
Patient stated that he is leaving in the morning. And that he is not bleeding anymore so he is gonna home. Educated the patient that it is not safe to go home because he is still needing antibiotics and that if he goes home, the incision could get infected and he could get sepsis. Patient is still insisting to leave at 8 once his mom gets here. He also refused IV antibiotics and asked to removed IV access and i told him that i can not removed until right before he gets discharge. He then proceed to remove the IV access. Paged Hospitalist to inform them about the situation pending call back.
--- NOTE | 2025-10-06 06:36 | NUR ---
Informed CLOUD CONSULTANT Aleksandraiera media liaison officer regarding patient leaving AMA. Dr. Lentz is also made aware. He said he will talk to the patient today. I told patient that Dr. Lentz is gonna speak with him and that if he can wait till he gets here. He said no once his mom is here he said he will sign AMA from and leave.
--- NOTE | 2025-10-06 06:50 | NUR ---
Educated patient to only eat full liquid diet like soups. Patient understands.
--- NOTE | 2025-10-06 07:44 | NUR ---
PT sitting in chair next to bed A&Ox4 able to needs known mother @ bedside. Educated PT on importance of following doctors orders and waiting until DR arrived. PT acknowledged understanding and stated "Yall aint doing anything else for me and I feel better I'm going home". PT sign AMA form and self ambulated off floor. aware.
[2025-10-06] MEDS: PoTASSium chloRIDE 20MEQ ER 20 MEQ ERTAB PO ONE (07:50)
--- NOTE | 2025-10-06 08:47 | PN ---
GENERAL SURGERY PROGRESS NOTE DATE OF SERVICE: Oct 06, 2025 TIME OF SERVICE: 08:47 PROBLEM LISTS: [ ] INTERVAL HISTORY: [ ] PHYSICAL EXAMINATION: GENERAL: [Patient is lying comfortably in bed, not in any obvious distress.] HEAD: [Normal with no signs of head trauma.] EYES: [Not pale not jaundiced afebrile to touch.] ENT: [ Normal.] NECK: [Supple,no tenderness,no lymphadenopathy,no masses,no thyromegaly ,no bruits, no JVD.] LUNGS: [Clear breath sounds bilaterally. No wheezes, rales, or rhonchi.] HEART: [Regular rate and rhythm. Normal S1 and S2, without murmurs, rub or gallop.] VASC: [No edema. Peripheral pulses normal and equal in all extremities.] ABD: [Bowel sounds present,soft, RUQ tender, no masses, no organomegaly.] : [Normal, no suprapubic tenderness.] LYMPH: [No lymphadenopathy noted.] EXT: [ Warm soft, non tender.] SKIN: [ No rashes or lesions.] NEURO: [ Awake Alert and oriented x3.] LABORATORY: [ ] Hematology Labs: Test 10/06/25 03:52 Range/Units White Blood Count 9.5 4.8-10.8 K/uL Red Blood Count 4.55 4.50-6.20 MIL/uL Hemoglobin 13.8 L 14.0-18.0 g/dL Hematocrit 42.2 42-54 % Mean Corpuscular Volume 92.7 79-99 fL Mean Corpuscular Hemoglobin 30.3 27.0-33.0 pg Mean Corpuscular Hemoglobin Concent 32.7 32.0-36.0 g/dL Red Cell Distribution Width 11.9 11.0-15.5 % Platelet Count 209 130-400 K/uL Mean Platelet Volume 10.4 7.5-10.5 fL Immature Granulocyte % (Auto) 0.4 0-1 % Neutrophils (%) (Auto) 72.7 40.0-77.0 % Lymphocytes (%) (Auto) 15.5 L 21.0-51.0 % Monocytes (%) (Auto) 9.4 3.0-13.0 % Eosinophils (%) (Auto) 1.8 0.0-8.0 % Basophils (%) (Auto) 0.2 0.0-5.0 % Neutrophils # (Auto) 6.9 1.8-7.7 K/uL Lymphocytes # (Auto) 1.5 1.0-4.8 K/uL Monocytes # (Auto) 0.9 0.1-1.0 K/uL Eosinophils # (Auto) 0.17 0.00-0.70 K/uL Basophils # (Auto) 0.02 0.00-0.20 K/uL Absolute Immature Granulocyte (auto 0.04 0-1 K/uL Nucleated Red Blood Cells 0.0 0.0-0.19 % Chemistry Labs: Test 10/06/25 03:52 Range/Units Sodium Level 138 136-145 mmol/L Potassium Level 3.7 3.5-5.1 mmol/L Chloride Level 105 101-111 mmol/L Carbon Dioxide Level 25 21-32 mmol/L Blood Urea Nitrogen 7 7-18 mg/dL Creatinine 0.8 0.5-1.3 mg/dL Glomerular Filtration Rate Calc 99 >90 mL/min Random Glucose 96 70-105 mg/dL Total Calcium 8.3 L 8.5-10.1 mg/dL Magnesium Level 2.00 1.80-2.40 mg/dL Total Bilirubin 0.4 0.2-1.0 mg/dL Aspartate Amino Transf (AST/SGOT) 20 10-37 U/L Alanine Aminotransferase (ALT/SGPT) 15 12-78 U/L Alkaline Phosphatase 52 50-136 U/L Total Protein 6.6 6.0-8.3 g/dL Albumin 2.7 L 3.5-5.0 g/dL DIAGNOSTICS / RADIOLOGY: [Copy/Paste Echos/Imaging Report here] ASSESSMENT: [] Foreign body in the rectum PLAN: [] NPO/IVF/IV ANTIOBIOTICS Schedule for OR We talked about various treatment options including but not limited to surgery. We talked about risks and benefits of surgery, patient verbalized understanding has agreed to proceed [ ]. We will schedule [ ]. SHERRY DUNCAN MD Oct 06, 2025 08:47
[2025-10-06] MEDS ORDERED: ENOXAPARIN SODIUM 30 MG/0.3 ML SQ SCH (09:00)
--- NOTE | 2025-10-06 10:41 | DS ---
Discharge Summary Hospital Course Summary: DATE OF ADMISSION:[10/03/2025] DATE OF DISCHARGE:[10/06/2025] DISPOSITION:[Left AMA] CONDITION:[Left AMA] CONSULTANTS:[Surgeon] FOLLOW UP APPOINTMENTS:[PCP 2 to 3 days. Surgeon within 1 to 2 days] PROCEDURES:[Foreign body removal from the anal 10/04/2025] IMAGING: report attached to summary MICROBIOLOGY: report attached to summary ACTIVITY:[One-person assist] HOME MEDICATIONS: see NEW MEDICATIONS:[Patient left against medical advice. As per surgeon he was able to prescribe patient Cipro and Flagyl prior leaving AMA] EMERGENCY INSTRUCTIONS: The patient was instructed to present to the nearest Emergency departmentr or call 911 once their symptoms will return or worsen Model Artists'(s): As per RN patient decided that he is living since he is not bleeding anymore and he wants to go home. Patient was educated by RN that is not safe to go home because he is still needing antibiotics and if he goes home the incision could get infected and could get the septic.. Patient continue to insist to leave at eight once his mom we will get 30 pick him up. Patient refused morning IV antibiotics and ask for his IV access to be removed. RN instructed patient that the IV we will be removed once his mouth gets there, unfortunately patient proceed to remove the ID access. Hospitalist was paged and informed about the situation. Surgeon was also aware of above-stated monitor and ask if the patient could hold on until seen by him. Unfortunately patient declined and stated he will leave once his mom gets there and signed the AMA paperwork patient was also educated on eating only full liquid diet until he sees his PCP or surgeon outpatient. Patient's stated understanding of importance of keeping full liquid diet in the meantime. At 7:44 a.m. patient was educated on importance of following doctor's orders. Patient acknowledged understanding and stated "Yall aint doing anything else for me and I feel better I'm going home". PT sign AMA form and self ambulated off floor. Procedure(s): REVIEW OF SYSTEMS CONSTITUTIONAL: Denies fevers, chills, or night sweats. No unintentional weight loss reported. NEUROLOGICAL: Denies headache, amaurosis fugax, motor weakness, sensory deficit, vertigo/spinning sensation, gait abnormalities, or tremors. ENT: No hearing loss, otalgia, otorrhea, rhinitis, rhinorrhea, hoarseness, or sore throat. CARDIOVASCULAR: Denies any exertional angina, dyspnea on exertion, orthopnea, paroxysmal nocturnal dyspnea, palpitations, life-threatening arrhythmias, claudication. PULMONARY: Denies any shortness of breath, cough, phlegm/sputum, hemoptysis, pleuritic chest pain. SLEEP: Denies morning headaches, daytime somnolence or napping. Denies difficulty falling asleep, staying asleep, waking from sleep. Denies knowledge of snoring. GASTROINTESTINAL: Denies any abdominal pain. Denied any melena, hematochezia, hematemesis GENITOURINARY: Denies frequency, urgency, nocturia, hematuria or incontinence (Storage/Irritative symptoms.) Low urinary stream, straining to void, urinary intermittency or hesitancy, splitting of the voiding stream, terminal dribbling. ENDOCRINOLOGIC: Denies polyuria, polydipsia, polyphagia or heat/cold intolerances. HEMATOLOGIC: Denies thrombophilia/previous clots, or coagulopathy/bleeding disorders. ONCOLOGIC: Denies personal history of malignancy. DERMATOLOGIC: Denies rashes or pruritus. PSYCHIATRIC: Denies any suicidal or homicidal ideation. Denies hallucinations. Assessment/Plan: ASSESSMENT: Foreign body in rectum POA s/p removal of the rectal full range body and repair of an anal tear with Olga Lidia Parra. Leukocytosis POA Dehydration Time spent arranging discharge: 31-60 minutes ATTESTATION BY PHYSICIAN I have seen and examined the patient. I reviewed the documentation, medical decision making, and treatment plan as noted by the mid-level provider above. I agree with the findings and plan of care. WANG ESTRADA MD, KATARZYNA B [employer] Oct 06, 2025 10:41
== END 2025-10-06 07:45 | disposition left against medical advice (07) | DRG 349 ==
LOC: 4BH 16:50
PROVIDERS: ADMIT Internal Medicine; ATTEND Internal Medicine
PROC: 0DQQ7ZZ Repair Anus, Via Natural or Artificial Opening (ICD-10-PCS; 2025-10-03)
PROC: 0DCP7ZZ Extirpation of Matter from Rectum, Via Natural or Artificial Opening (ICD-10-PCS; principal; 2025-10-03 18:07)
DX: T18.5XXA Foreign body in anus and rectum, initial encounter (principal); D72.829 Elevated white blood cell count, unspecified; E86.0 Dehydration; W44.8XXA Other foreign body entering into or through a natural orifice, initial encounter; Y93.89 Activity, other specified; Y92.89 Other specified places as the place of occurrence of the external cause; Y99.8 Other external cause status
CPT/HCPCS: 36415; 74018; 80048; 80053; 83735; 85025; 85610; 85730; 88300; A4450; A4606; G0378; J0330; J0690; J0696; J1100; J1171; J1885; J2003; J2250; J2405; J2704; J3010; J3490; A4649; A4930; J0665; J1308